=== PATIENT | male | born 1970 | race Caucasian/White ===

== ENCOUNTER 2019-03-06 10:50 | Emergency (ER) | payer BC ==
[~2019-03-06] VITALS: Ht 177.8 cm; Wt 113.4 kg
[2019-03-06] MEDS ORDERED: LITHIUM CARBON300 MG ORAL (10:58)
[2019-03-06] MEDS ORDERED: ASPIR 8181 MG ORAL (10:58)
[2019-03-06] MEDS ORDERED: PLAVIX75 MG ORAL (10:58)
[2019-03-06] MEDS ORDERED: LIPITOR80 MG ORAL (10:58)
[2019-03-06] MEDS ORDERED: LYRICA100 MG ORAL (10:58)
--- NOTE | 2019-03-06 11:03 | NUR ---
ED Nurse Note: pt walked in to ED from sober living facility due to fell injury yesterday. per pt, [place]. multiple scratches and bruised noted on right lower leg and knee area. pt c/o pain on back of knee. denies head injury. ambulatory with steady gait. will wait for the further order.
[2019-03-06] MEDS ORDERED: IBUPROFEN600 MG ORAL (12:02)
--- NOTE | 2019-03-06 12:10 | Emergency Room Report ---
History of Present Illness General Chief Complaint: Lower Extremity Injury Source: Patient Present Illness HPI Patient presents with complaints of trauma to the right lower extremity reports that he was hiking late last night when he had a fall Injuring his right ankle and lower leg area pain is worse with walking Denies any fevers or chills denies any head injury patient also sustained multiple abrasions to both lower extremities He has some discomfort to the posterior knee as well denies any pelvic pain Allergies: Coded Allergies: No Known Allergies (Unverified , 03/06/19) Patient History Past Medical History: see triage record Reviewed Nursing Documentation: PMH: Agreed; PSxH: Agreed Nursing Documentation-PMH Hx Cardiac Problems: Yes - CVA (6 MONTHS AGO) Review of Systems All Other Systems: negative except mentioned in HPI Physical Exam Vital Signs Date Time Temp Pulse Resp B/P (MAP) Pulse Ox O2 Delivery O2 Flow Rate FiO2 03/06/19 10:53 97.7 100 19 158/60 (92) 97 Room Air Sp02 EP Interpretation: reviewed, normal General Appearance: well appearing, no apparent distress Head: normocephalic, atraumatic Eyes: bilateral eye PERRL, bilateral eye EOMI ENT: hearing grossly normal, normal pharynx, TMs + canals normal, uvula midline Neck: full range of motion, supple, no meningismus, no bony tend Respiratory: lungs clear, normal breath sounds, no rhonchi, no respiratory distress, no retraction, no accessory muscle use Cardiovascular #1: normal peripheral pulses, regular rate, rhythm, no edema, no gallop, no JVD, no murmur Gastrointestinal: normal bowel sounds, non tender, soft, no mass, no organomegaly, non-distended, no guarding, no hernia, no pulsatile mass, no rebound Genitourinary: no CVA tenderness Musculoskeletal: swelling - Right ankle with several abrasions over the right knee and lower extremity mild ecchymosis medially as well proximal tibial area Neurologic: oriented x3, responsive, specialist managers III-XII nml as tested, motor strength/ tone normal, sensory intact Psychiatric: mood/affect normal Skin: other - As above Lymphatic: normal inspection, no adenopathy Medical Decision Making Diagnostic Impression: Primary Impression: Injury of lower extremity Additional Impressions: ankle sprain abrasions ER Course Given the history and presentation multiple imaging studies are initiated no obvious fractures are seen patient has wound care provided And at this time is ambulatory and stable for close outpatient follow-up Other X-Ray Diagnostic Results Other X-Ray Diagnostic Results #1: X-Ray ordered: right Ankle # of Views/Limited Vs Complete: 3 View Indication: Pain EP Interpretation: Yes Interpretation: no dislocation, no fractures, other - Swelling Impression: Other - mild swelling, no fx Electronically Signed by: Jose M Kamara DO Other X-Ray Diagnostic Results #2: X-Ray ordered: knee right # of Views/Limited Vs Complete: 3 View Indication: Pain EP Interpretation: Yes Interpretation: no dislocation, no soft tissue swelling, no fractures Impression: No acute disease Electronically Signed by: Jose M Kamara DO Last Vital Signs Date Time Temp Pulse Resp B/P (MAP) Pulse Ox O2 Delivery O2 Flow Rate FiO2 03/06/19 10:53 97.7 100 19 158/60 (92) 97 Room Air Status: improved Disposition: HOME, SELF-CARE Condition: Improved Scripts Ibuprofen* (MOTRIN*) 600 Mg Tablet 600 MG ORAL Q8H PRN for For Pain, #20 TAB 0 Refills Prov: Jsoe M Kamara DO 03/06/19 Referrals: NOT CHOSEN IPA/MD,REFERRING (PCP) [facility] Patient Instructions: Ankle Sprain, Abrasion, [id number] Additional Instructions: Patient is provided with the discharge instructions notified to follow up with primary doctor in the next 2-3 days otherwise return to the er with any worsening symptoms. Please note that this report is being documented using [employer] technology. This can lead to erroneous entry secondary to incorrect interpretation by the dictating instrument. Jose M Kamara DO Mar 06, 2019 12:10
--- NOTE | 2019-03-06 12:10 | Diagnostic Imaging Report ---
Indication: Pain, trauma Technique: 3 views of the right ankle Comparison: None Findings: No acute fractures. No dislocations. Joint spaces are preserved. There are small plantar and calcaneal spurs Impression: No acute process
[2019-03-06 12:11] VITALS: BP 144/78
--- NOTE | 2019-03-06 12:12 | NUR ---
ER DISCHARGE NOTE: Patient is cleared to be discharged per ERMD with friend, pt is aox4, on room air, with stable vital signs. pt was given dc and prescription instructions, pt was able to verbalize understanding, pt id band removed without complications. pt is able to ambulate with steady gait. pt took all belongings.
--- NOTE | 2019-03-06 12:19 | Diagnostic Imaging Report ---
Indications: Pain, trauma Technique: Three views of the right knee Comparison: None Findings: No acute fractures. No dislocations. Joint spaces are preserved. No radiopaque foreign body. Normal mineralization. Impression: No acute process
== END 2019-03-06 12:13 | disposition home or self-care (01) ==
LOC: EMR 11:15
DX: S93.401A Sprain of unspecified ligament of right ankle, initial encounter (principal); S80.211A Abrasion, right knee, initial encounter; S80.811A Abrasion, right lower leg, initial encounter; Z86.73 Personal history of transient ischemic attack (TIA), and cerebral infarction without residual deficits; W18.30XA Fall on same level, unspecified, initial encounter; Y93.01 Activity, walking, marching and hiking; Y92.9 Unspecified place or not applicable
CPT/HCPCS: 99284